=== PATIENT | male | born 1935 | race Two or more races ===

== ENCOUNTER 2018-03-12 23:20 | Emergency (ER) | payer OTHER, MEDICAID ==
[~2018-03-12] VITALS: Ht 172.7 cm; Wt 79.8 kg
[2018-03-12 23:46] VITALS: BP 109/63
[2018-03-13] MEDS ORDERED: cefTRIAXone SOD 1,000 MG VL IM ONE (02:00)
[2018-03-13] MEDS ORDERED: LIDOCAINE 1% (LOCAL ANESTH.) PF 5ml SDV ONE (02:12)
[2018-03-13] MEDS ORDERED: LIDOCAINE HCL 2% TOP JELLY 5ML TOP ONE ×2 (02:30→02:45)
[2018-03-13 02:38] LABS: Urine Bacteria FEW /hpf (None Seen); Urine Blood TRACE /uL (Negative); Urine Specific Gravity 1.006 (1.001-1.035); Urine WBC 4 /hpf (0 - 3)
[2018-03-13 02:47] LABS: Basophils # (auto) 0.1 uL; Basophils % (auto) 0.5 % (0.0-2.0); Eosinophils # (auto) 0.5 uL; Eosinophils % (auto) 4.3 % (0.0-7.0); Hematocrit 36.2 % (41.0-53.0); Hemoglobin 12.2 g/dL (13.5-17.5); Lymphocytes % (auto) 24.4 % (10.0-50.0); Mean Corpuscular Hemoglobin 29.5 pg (28.0-32.0); Mean Corpuscular Hgb Conc. 33.6 g/dL (32.0-36.0); Mean Corpuscular Volume 87.7 fL (80.0-100.0); Monocytes # (auto) 1.2 uL; Monocytes % (auto) 9.5 % (0.0-12.0); Neutrophils # (auto) 7.5 uL; Neutrophils % (auto) 61.3 % (37.0-80.0); Platelet Count (auto) 193 10^3/uL (140-450); Red Blood Cells 4.13 10^6/uL (4.5-5.90); Red Cell Distribution Width 15.3 % (11.8-14.3); White Blood Cell 12.2 10^3/uL (4.4-10.8)
[2018-03-13 03:05] LABS: BUN/Creatinine Ratio 14.8; Calcium 8.3 mg/dL (8.5-10.1); Potassium 4.4 mmol/L (3.5-5.1)
[2018-03-13 03:07] LABS: Bilirubin, Total 0.4 mg/dL (0.2-1.0); Total Protein 6.4 g/dL (6.4-8.2)
== END 2018-03-13 03:48 | disposition home or self-care (01) ==
LOC: ER 23:22
DX: N39.0 Urinary tract infection, site not specified (principal); T83.091A Other mechanical complication of indwelling urethral catheter, initial encounter; Z86.73 Personal history of transient ischemic attack (TIA), and cerebral infarction without residual deficits; Y84.6 Urinary catheterization as the cause of abnormal reaction of the patient, or of later complication, without mention of misadventure at the time of the procedure; Y92.89 Other specified places as the place of occurrence of the external cause
CPT/HCPCS: 36415; 51702; 80053; 81001; 85025; 96372; 99284; J0696

== ENCOUNTER 2018-04-15 13:40 | Inpatient (IN) | payer OTHER, MEDICAID ==
[~2018-04-15] VITALS: Ht 177.8 cm; Wt 84.1 kg
[2018-04-15 17:55] LABS: Urine Bacteria FEW /hpf (None Seen); Urine Blood Negative /uL (Negative); Urine Mucus FEW (None Seen); Urine Specific Gravity 1.017 (1.001-1.035); Urine WBC 4 /hpf (0 - 3)
[2018-04-15] MEDS ORDERED: SODIUM CHLORIDE 0.9% 1,000 ML IVB ONE (19:18)
[2018-04-15] MEDS ORDERED: cefTRIAXone 1GM/10ml IVPUSH 10 ML IV ONE (19:30)
[2018-04-15 19:35] LABS: Basophils # (auto) 0.1 uL; Basophils % (auto) 0.5 % (0.0-2.0); Eosinophils # (auto) 0.2 uL; Eosinophils % (auto) 2.4 % (0.0-7.0); Hematocrit 39.5 % (41.0-53.0); Hemoglobin 13.3 g/dL (13.5-17.5); Lymphocytes # (auto) 2.2 uL; Lymphocytes % (auto) 20.8 % (10.0-50.0); Mean Corpuscular Hemoglobin 30.3 pg (28.0-32.0); Mean Corpuscular Hgb Conc. 33.7 g/dL (32.0-36.0); Mean Corpuscular Volume 89.9 fL (80.0-100.0); Monocytes # (auto) 1.1 uL; Neutrophils # (auto) 6.8 uL; Neutrophils % (auto) 65.3 % (37.0-80.0); Platelet Count (auto) 234 10^3/uL (140-450); Red Blood Cells 4.39 10^6/uL (4.5-5.90); Red Cell Distribution Width 15.2 % (11.8-14.3); White Blood Cell 10.4 10^3/uL (4.4-10.8)
[2018-04-15 19:49] LABS: Albumin 3.1 g/dL (3.4-5.0); BUN/Creatinine Ratio 22.4; Calcium 8.4 mg/dL (8.5-10.1); Magnesium 2.1 mg/dL (1.6-2.6); Potassium 4.7 mmol/L (3.5-5.1)
[2018-04-15 19:51] LABS: Bilirubin, Total 0.4 mg/dL (0.2-1.0); Total Protein 7.3 g/dL (6.4-8.2)
[2018-04-15 19:54] LABS: INR 0.98 (0.9-1.15); Partial Thromboplastin Time 28.7 sec (23.78-33.04); Prothrombin Time 10.5 sec (9.27-12.13)
[2018-04-15] MEDS ORDERED: DOCUSATE SOD 100 MG CAP PO PRN (20:45)
[2018-04-15] MEDS ORDERED: ONDANSETRON HCL 4 MG/2 ML VIAL IV PRN (20:45)
[2018-04-15] MEDS ORDERED: ACETAMINOPHEN 325 MG TAB PO PRN (20:45)
[2018-04-15] MEDS ORDERED: TEMAZEPAM 15 MG CAP PO PRN (20:45)
[2018-04-15] MEDS ORDERED: LIDOCAINE 2% JELLY 11ml (GLYDO) UR ONE (21:15)
[2018-04-15] MEDS: LEVOFLOXACIN 500MG 100 ML IV SCH (21:38)
[2018-04-15 22:00] VITALS: BP 128/80
[2018-04-15] MEDS: ATORVASTATIN 20 MG TAB PO SCH (22:29)
[2018-04-15] MEDS: FAMOTIDINE 20 MG TAB PO SCH (22:29)
[2018-04-15] MEDS ORDERED: MAGN400T5 PO (23:29)
[2018-04-15] MEDS ORDERED: ATOR80TA PO (23:29)
[2018-04-16] VITALS (7 sets, daily range): BP systolic 106–131; BP diastolic 61–70
[2018-04-16 06:33] LABS: Basophils # (auto) 0.1 uL; Basophils % (auto) 0.8 % (0.0-2.0); Eosinophils # (auto) 0.3 uL; Eosinophils % (auto) 3.4 % (0.0-7.0); Hematocrit 34.8 % (41.0-53.0); Hemoglobin 11.8 g/dL (13.5-17.5); Lymphocytes # (auto) 2.4 uL; Lymphocytes % (auto) 24.4 % (10.0-50.0); Mean Corpuscular Hemoglobin 30.1 pg (28.0-32.0); Mean Corpuscular Hgb Conc. 33.9 g/dL (32.0-36.0); Mean Corpuscular Volume 88.7 fL (80.0-100.0); Monocytes # (auto) 1.1 uL; Monocytes % (auto) 11.1 % (0.0-12.0); Neutrophils % (auto) 60.3 % (37.0-80.0); Platelet Count (auto) 229 10^3/uL (140-450); Red Blood Cells 3.92 10^6/uL (4.5-5.90); Red Cell Distribution Width 14.9 % (11.8-14.3)
[2018-04-16 07:12] LABS: Albumin 2.8 g/dL (3.4-5.0); BUN/Creatinine Ratio 23.7; Bilirubin, Total 0.7 mg/dL (0.2-1.0); Calcium 8.3 mg/dL (8.5-10.1); Potassium 4.1 mmol/L (3.5-5.1); Total Protein 6.3 g/dL (6.4-8.2)
[2018-04-16] MEDS: FINASTERIDE 5 MG TAB PO SCH (11:08)
[2018-04-16] MEDS: ENOXAPARIN SOD 40 MG/0.4 ML SYRINGE SC SCH (11:08)
[2018-04-16] MEDS: FAMOTIDINE 20 MG TAB PO SCH ×2 (11:08→21:14)
[2018-04-16] MEDS: LEVOFLOXACIN 500MG 100 ML IV SCH (11:08)
[2018-04-16] MEDS: ATORVASTATIN 20 MG TAB PO SCH (21:14)
[2018-04-17] VITALS (8 sets, daily range): BP systolic 109–134; BP diastolic 66–74
[2018-04-17] MEDS: FINASTERIDE 5 MG TAB PO SCH (11:29)
[2018-04-17] MEDS: ENOXAPARIN SOD 40 MG/0.4 ML SYRINGE SC SCH (11:29)
[2018-04-17] MEDS: LEVOFLOXACIN 500MG 100 ML IV SCH (11:29)
[2018-04-17] MEDS: FAMOTIDINE 20 MG TAB PO SCH ×2 (11:29→21:48)
[2018-04-17] MEDS: ATORVASTATIN 20 MG TAB PO SCH (21:48)
[2018-04-18 05:00] VITALS: BP 126/69
[2018-04-18 09:00] VITALS: BP 116/70
[2018-04-18] MEDS: FINASTERIDE 5 MG TAB PO SCH (10:03)
[2018-04-18] MEDS: LEVOFLOXACIN 500MG 100 ML IV SCH (10:03)
[2018-04-18] MEDS: ENOXAPARIN SOD 40 MG/0.4 ML SYRINGE SC SCH (10:03)
[2018-04-18] MEDS: FAMOTIDINE 20 MG TAB PO SCH ×2 (10:03→21:10)
[2018-04-18 11:57] VITALS: BP 117/69
[2018-04-18 16:57] VITALS: BP 120/70
[2018-04-18 20:00] VITALS: BP 133/70
[2018-04-18] MEDS: ATORVASTATIN 20 MG TAB PO SCH (21:11)
[2018-04-18 22:00] VITALS: BP 133/70
[2018-04-19 05:00] VITALS: BP 123/62
[2018-04-19 09:00] VITALS: BP 120/77
[2018-04-19] MEDS: ENOXAPARIN SOD 40 MG/0.4 ML SYRINGE SC SCH (09:57)
[2018-04-19] MEDS: FINASTERIDE 5 MG TAB PO SCH (09:57)
[2018-04-19] MEDS: LEVOFLOXACIN 500MG 100 ML IV SCH (09:58)
[2018-04-19] MEDS: FAMOTIDINE 20 MG TAB PO SCH (09:59)
[2018-04-19 13:00] VITALS: BP 128/63
[2018-04-19] MEDS: PANTOPRAZOLE 40 MG TAB PO SCH (13:11)
[2018-04-19 17:00] VITALS: BP 131/71
[2018-04-19 20:00] VITALS: BP 131/73
[2018-04-19 22:00] VITALS: BP 131/73
[2018-04-19] MEDS: ATORVASTATIN 20 MG TAB PO SCH (22:55)
[2018-04-20 05:08] VITALS: BP 126/63
[2018-04-20 08:27] VITALS: BP 112/62
[2018-04-20] MEDS: LEVOFLOXACIN 500MG 100 ML IV SCH (10:20)
[2018-04-20] MEDS: ENOXAPARIN SOD 40 MG/0.4 ML SYRINGE SC SCH (10:20)
[2018-04-20] MEDS: PANTOPRAZOLE 40 MG TAB PO SCH (10:21)
[2018-04-20] MEDS: FINASTERIDE 5 MG TAB PO SCH (10:21)
[2018-04-20 12:32] VITALS: BP 116/70
[2018-04-20 16:39] VITALS: BP 120/66
[2018-04-20 20:00] VITALS: BP 128/70
== END 2018-04-20 21:20 | disposition home or self-care (01) | DRG 690 ==
LOC: EDBD 13:40 → ER 13:41 → OVERFLOW 13:42 → WEST WING 22:06
PROVIDERS: ADMIT Nurse Practitioner; ATTEND Family Medicine
DX: N39.0 Urinary tract infection, site not specified (principal); I69.951 Hemiplegia and hemiparesis following unspecified cerebrovascular disease affecting right dominant side; E78.5 Hyperlipidemia, unspecified; N40.0 Benign prostatic hyperplasia without lower urinary tract symptoms; E78.00 Pure hypercholesterolemia, unspecified; I10 Essential (primary) hypertension; Z82.49 Family history of ischemic heart disease and other diseases of the circulatory system
CPT/HCPCS: 36415; 51702; 71045; 76856; 80053; 81001; 82962; 83735; 85025; 85610; 85730; 93005; 94761; 96361; 96374; 97110; 97116; 97163; 97530; J0696; J1956